=== PATIENT | male | born 1940 | race Two or more races ===

== ENCOUNTER 2024-08-27 12:13 | Emergency (ER) | payer OTHER ==
[~2024-08-27] VITALS: Ht 167.6 cm; Wt 81.6 kg
[2024-08-27] MEDS ORDERED: TIROSINT25 MCG PO (12:52)
[2024-08-27] MEDS ORDERED: CHILDREN'S ASPI81 MG PO (12:53)
[2024-08-27] MEDS ORDERED: COZAAR100 MG PO (12:53)
[2024-08-27] MEDS ORDERED: AMOXICILLIN500 M1 PO (12:53)
[2024-08-27] MEDS ORDERED: XOPENEX HFA15 GM IH (12:54)
[2024-08-27] MEDS ORDERED: PEPCID AC20 MG PO (12:54)
[2024-08-27] MEDS ORDERED: MONTELUKAST SODI4 M1 PO (12:54)
[2024-08-27] MEDS ORDERED: LIPITOR20 MG PO (12:54)
[2024-08-27] MEDS ORDERED: BUDESONIDE 0.5 MG/2 ML AMPUL.NEB IH STA (12:59)
[2024-08-27] MEDS ORDERED: IPRATROPIUM BROMIDE 0.5 MG/2.5 ML AMPUL.NEB IH SCH (13:00)
[2024-08-27] MEDS ORDERED: METHYLPREDNISOLONE SOD SUCC 125 MG VIAL IV STA (13:00)
[2024-08-27] MEDS ORDERED: LEVALBUTEROL HCL 1.25 MG/3 ML SOLUTION IH SCH (13:00)
[2024-08-27] MEDS ORDERED: LEVALBUTEROL HCL 1.25 MG/3 ML SOLUTION IH ONE (13:02)
[2024-08-27] MEDS ORDERED: BUDESONIDE 0.5 MG/2 ML AMPUL.NEB IH ONE (13:02)
[2024-08-27] MEDS ORDERED: IPRATROPIUM BROMIDE 0.5 MG/2.5 ML AMPUL.NEB IH ONE (13:03)
[2024-08-27] MEDS ORDERED: METHYLPREDNISOLONE SOD SUCC 125 MG VIAL ONE (13:16)
[2024-08-27 13:56] LABS: ABG PH 7.435 (7.35-7.45); ABG pCO2 30.2 mmHg (35-45); BASE EXCESS -3.1 mmol/l; BICARBONATE 19.8 mmol/l (23-25); Tco2 20.8 mmol/l
[2024-08-27 13:57] LABS: allen test SATISFACTORY; o2 21 %; puncture site RADIAL RIGHT
[2024-08-27 14:11] LABS: HEMATOCRIT 37.6 % (39.0-48.0); HEMOGLOBIN 12.8 g/dL (13-16.00); MEAN CELL VOLUME 93.4 fL (80.0-100.00); MEAN CORPUSCULAR HEMOGLOBIN 31.9 pg (27.00-32.0); MEAN CORPUSCULAR HGB CONC 34.2 g/dl (32.0-36.0); PLATELET COUNT 160 K/uL (150-450); RED BLOOD COUNT 4.02 M/uL (4.00-6.00); RED CELL DISTRIBUTION WIDTH 13.5 % (11.5-14.5)
[2024-08-27 14:30] LABS: CALCIUM 8.8 mg/dL (8.5-10.1); CREATININE SERUM 1.86 mg/dL (0.70-1.30); GFR 34.95; POTASSIUM 4.4 mEq/L (3.5-5.1)
[2024-08-27] MEDS ORDERED: CEFTRIAXONE SODIUM 1,000 MG VIAL IM STA (14:57)
[2024-08-27] MEDS ORDERED: CEFTRIAXONE SODIUM 1,000 MG VIAL ONE (15:04)
== END 2024-08-27 15:09 | disposition home or self-care (01) ==
LOC: ER 12:15
PROVIDERS: General Practice
DX: R53.81 Other malaise (principal); J44.1 Chronic obstructive pulmonary disease with (acute) exacerbation
CPT/HCPCS: 36415; 82803; 94640; 96365; 96372; 99282; J0696; J3490